=== PATIENT | male | born 1960 | race Caucasian/White ===

== ENCOUNTER 2016-06-16 23:09 | Emergency (ER) | payer BC ==
[2016-06-16 23:33] VITALS: BP 131/79
--- NOTE | 2016-06-16 23:57 | ERNOTE ---
Date of Service: 06/16/16 Time Seen by Provider: 06/16/16 23:50 Stated Complaint: COUGH BLOOD Presenting Symptoms:: cough, sore throat Immunizations: IMMUNIZATION HX Immunizations Up to Date No History of Influenza Vaccine No Hx Pneumococcal Vaccination No Allergies/Adverse Reactions: Allergies No Known Drug Allergies Allergy (Verified 06/16/16 23:34) Home Medications: HOME MEDICATIONS Ascorbic Acid [Vitamin C] 500 mg PO DAILY 06/16/16 [Last Taken Unknown] Azithromycin [Zithromax] 250 mg PO DAILY #6 tablet 06/16/16 [Last Taken Unknown] - History of Present Ilness Narrative: Here for cough congestion and sore throat. Pt has also had 6 beers today Review of Systems - Review of Systems Constitutional: Present: no symptoms reported EYE: Present: no symptoms reported ENT: Present: no symptoms reported Respiratory: Present: See HPI, other - coughed up blood and is an active smoker Gastrointestinal/Abdominal: Present: no symptoms reported Musculoskeletal: Present: no symptoms reported Skin: Present: no symptoms reported - Patient's Past Medical History Patient History - Medical: No pertinent hx Patient History - Cardiac/Respiratory: No pertinent hx Patient History - Cancer: No Hx of Cancer Patient History - Other: None - Social History Living Situations: home Abuse History: No History of abuse Psych History: No pertinent hx Smoking Status: Current every day smoker Alcohol Use: heavy Drug Use: none - Immunizations Immunizations Up to Date: No Hx Pneumococcal Vaccination: No History of Influenza Vaccine: No Physical Exam - Physical Exam General Appearance: Present: wd/wn, alert, no apparent distress Ears, Nose, Throat: Present: other - I see some posterior pharyngeal erythema and exudates. Respiratory: Present: other - deep inspiration leads to cough and some end expiratory wheezing. no respiratory distress noted. Respirations are even and unlabored Cardiovascular/Chest: Present: regular rate, rhythm ED Progress - Results and Orders Patient's Lab Results:: I have reviewed the patient's lab results. - Vital Signs Patient's Vital Signs:: I have reviewed the patient's vital signs. Vital Signs: Vital Signs 06/16/16 23:28 Temperature 36.4 C L Pulse Rate 60 Respiratory 18 Rate Blood Pressure 131/79 O2 Sat by Pulse 95 Oximetry - Progress/Reassessment Chief Complaint: Cough Plan - Plan Plan: will treat for Bronchitis and strep throat based on my exam Departure - Departure Clinical Impression: Strep pharyngitis, Bronchitis Disposition: Home self-care Condition: Good Instructions: Bronchospasm, Adult, Strep Throat, [id number] Prescriptions: Azithromycin [Zithromax] 250 mg PO DAILY #6 tablet
[2016-06-16] MEDS ORDERED: AZITHROMYCIN 250 MG TABLET PO ONE (23:58)
[2016-06-17] MEDS ORDERED: AZITHROMYCIN 250 MG TABLET ONE
== END 2016-06-17 00:04 | disposition home or self-care (01) ==
LOC: ER 23:09
DX: J02.0 Streptococcal pharyngitis (principal); J40 Bronchitis, not specified as acute or chronic; F17.210 Nicotine dependence, cigarettes, uncomplicated